=== PATIENT | female | born 1995 | race African-American/Black ===

== ENCOUNTER 2022-04-11 03:53 | Emergency (ER) | payer SELFPAY ==
[2022-04-11 03:53] VITALS: BP 120/93
[2022-04-11] MEDS ORDERED: KETOROLAC TROMETH 60MG/2ML VIAL IM ONE (04:15)
== END 2022-04-11 05:28 | disposition left against medical advice (07) ==
LOC: ER 03:53
DX: K08.89 Other specified disorders of teeth and supporting structures (principal); Z53.21 Procedure and treatment not carried out due to patient leaving prior to being seen by health care provider
CPT/HCPCS: J1885